=== PATIENT | female | born 2005 | race Caucasian/White ===

== ENCOUNTER 2024-07-10 18:15 | Emergency (ER) | payer BC, SELFPAY ==
[2024-07-10 18:20] VITALS: BP 142/78; PULSE 99; RESP 18; TEMP 36.7; O2SAT 100
--- NOTE | 2024-07-11 01:22 | ED.PREGNANCY ---
HPI - General Chief complaint: Vaginal Bleeding Stated complaint: PREG VAG BLEEDING Time Seen by Provider: 07/11/24 00:19 Source: patient Mode of arrival: ambulatory Limitations: no limitations History of Present Illness HPI Narrative: This is a 18 year old female that presents to the ER for vaginal bleeding. Reports she had a positive home test a couple of days ago. She started to have brown vaginal discharge. She is now experiencing mild vaginal bleeding. She also had some pelvic cramping earlier which prompted her to be seen. 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 This would be her first . Review of Systems Review of Systems: CONSTITUTIONAL: Denies fever GASTROINTESTINAL: Denies abdominal pain, nausea, vomiting All systems reviewed & are unremarkable except as noted in HPI and below PMFSH Past Medical History Medical History (Updated 07/11/24 @ 02:33 by Sonia Clark PA-C) No active medical problems Social History Social History (Updated 07/11/24 @ 01:24 by Sonia Clark PA-C) Smoking status: Never smoker Exam Narrative: GENERAL: Well-appearing, well-nourished, and in no acute distress. HEAD: Normocephalic, atraumatic. EYES: EOMI. CHEST: Clear to auscultation. No respiratory distress. No wheezes rales or rhonchi HEART: Regular rate and rhythm. No murmur heard. Normal peripheral pulses. ABDOMEN: Soft, nontender, nondistended, normal active bowel sounds. EXTREMITIES: Normal range of motion. No edema. SKIN: Warm, dry, no rash. NEURO: No focal deficits. Alert and oriented x3. PSYCH: Normal mood and affect Course Course Emergency Course: patient and family updated on workup and agree with plan of care Vital Signs Vital signs: Vital Signs Temperature 98.0 F 07/10/24 18:20 Pulse Rate 99 07/10/24 18:20 Respiratory Rate 18 07/10/24 18:20 Blood Pressure 142/78 H 07/10/24 18:20 Pulse Oximetry 100 07/10/24 18:20 Oxygen Delivery Room Air 07/10/24 18:20 Temperature 98.2 F 07/11/24 01:32 Pulse Rate 65 07/11/24 01:32 Respiratory Rate 15 07/11/24 01:32 Blood Pressure 120/84 07/11/24 01:32 Pulse Oximetry 98 07/11/24 01:32 Oxygen Delivery Room Air 07/10/24 18:20 MDM - OB/Uterine Contractions MDM Narrative Medical decision making narrative: patient presents to the emergency department for vaginal bleeding. Reporting having a positive home test a couple of days prior. Her vitals are stable. Hemoglobin is normal. Reports a mild amount of bleeding. Patient is O positive. Quantitative beta-hCG 27.59. Patient updated on her workup. Will be given follow-up with OB an order for repeat quantitative beta hCG. She was given warnings to return to the ER Differential Diagnosis Differential diagnosis: Likely other (miscarriage, threatened miscarriage) Lab Data Attestation: I reviewed the patient's lab results. 07/11/24 01:30 07/11/24 01:30 Labs: Lab Results 07/11/24 Range/Units 01:30 WBC 6.1 (4.5-10.0) K/mm3 RBC 4.63 (4.2-5.4) M/mm3 Hgb 13.7 (12.0-15.0) g/dL Hct 41.0 (37.0-47.0) % MCV 88.6 (80-100) fl MCH 29.6 (26-34) pg MCHC 33.4 (32-36) g/dl RDW 12.5 (11.5-14.5) % Plt Count 245 (150-375) k/mm3 MPV 10.1 (7.4-10.4) fl Immature Gran % (Auto) 0.2 (0-0.5) % Neut % (Auto) 49.7 (45.5-73.1) % Lymph % (Auto) 39.9 (18.3-44.2) % [place] % (Auto) 8.5 (2.6-8.5) % Eos % (Auto) 1.0 (0-4.4) % Baso % (Auto) 0.7 (0.2-1.2) % Lymph # (Auto) 2.44 (0.9-3.2) K/mm3 [place] # (Auto) 0.5 (0.1-0.6) K/mm3 Eos # (Auto) 0.1 (0-0.3) K/mm3 Baso # (Auto) 0.0 (0.0-0.1) K/mm3 Abs Immat Gran (auto) 0.01 (0.00-0.031) K/mm3 Absolute Neuts (auto) 3.0 (1.3-6.7) K/mm3 Absolute Nucleated RBC 0.000 (0.0-0.012) K/mm3 Nucleated RBC % 0.0 (0.0-0.2) % PT 13.7 (11.1-14.7) Seconds INR 1.0 APTT 28.3 (22.3-36.8) Seconds Sodium 138 (134-143) mmol/L [place]
[2024-07-11 01:32] VITALS: BP 120/84; PULSE 65; RESP 15; TEMP 36.8; O2SAT 98
[2024-07-11 01:36] LABS: Basophils Percent Auto 0.7 % (0.2-1.2); Eosinophils Absolute Auto 0.1 K/mm3 (0-0.3); Hemoglobin 13.7 g/dL (12.0-15.0); Immature Granulocyte Absolute 0.01 K/mm3 (0.00-0.031); Immature Granulocyte Percent A 0.2 % (0-0.5); Lymphocytes Absolute Auto 2.44 K/mm3 (0.9-3.2); Lymphocytes Percent Auto 39.9 % (18.3-44.2); Mean Corpuscular HGB Conc 33.4 g/dl (32-36); Mean Corpuscular Hemoglobin 29.6 pg (26-34); Mean Corpuscular Volume 88.6 fl (80-100); Mean Platelet Volume 10.1 fl (7.4-10.4); Monocytes Absolute Auto 0.5 K/mm3 (0.1-0.6); Monocytes Percent Auto 8.5 % (2.6-8.5); Neutrophils Percent Auto 49.7 % (45.5-73.1); Platelet Count Result 245 k/mm3 (150-375); Red Blood Count 4.63 M/mm3 (4.2-5.4); Red Cell Distribution Width 12.5 % (11.5-14.5); White Blood Count 6.1 K/mm3 (4.5-10.0)
[2024-07-11 01:46] LABS: Alanine Aminotransferase 9 U/L (6-35); Albumin Level 4.8 g/dL (3.7-5.6); Alkaline Phosphatase 73 U/L (45-116); Anion Gap 12 mmol/L (4-12); Aspartate Amino Transferase 23 U/L (14-36); Bilirubin,Total 0.6 mg/dL (0.2-1.3); Blood Urea Nitrogen 15 mg/dL (8-21); Calcium 9.2 mg/dL (8.9-10.7); Carbon Dioxide 23 mmol/L (22-30); Chloride 103 mmol/L (98-107); Estimated CRCL calculation 100 ml/min; Estimated Glomerular Filt Rate > 60; Glucose 83 mg/dL (65-110); Potassium 3.6 mmol/L (3.4-5.0); Sodium 138 mmol/L (134-143)
[2024-07-11 01:47] LABS: Prothrombin Time 13.7 Seconds (11.1-14.7)
[2024-07-11 01:48] LABS: Partial Thromboplastin Time 28.3 Seconds (22.3-36.8)
[2024-07-11 02:03] LABS: Beta HCG Quantitative 27.59 mIU/ML
== END 2024-07-11 02:46 | disposition home or self-care (01) ==
PROVIDERS: Emergency Provider Physician Assistant
DX: O20.9 Hemorrhage in early pregnancy, unspecified (principal); Z3A.00 Weeks of gestation of pregnancy not specified
CPT/HCPCS: 36415; 80053; 81025; 84702; 85025; 85461; 85610; 85730; 86850; 86900; 86901; 99284

== ENCOUNTER 2024-07-12 12:01 | Outpatient (CLI) | payer BC, SELFPAY ==
[2024-07-12 13:04] LABS: Beta HCG Quantitative 17.28 mIU/ML
== END 2024-07-12 12:02 | disposition home or self-care (01) ==
PROVIDERS: Visit Provider Physician Assistant
DX: Z32.01 Encounter for pregnancy test, result positive (principal)
CPT/HCPCS: 36415; 84702

== ENCOUNTER 2025-02-15 17:15 | Emergency (ER) | payer BC, SELFPAY ==
--- NOTE | 2025-02-15 17:23 | ED_ITS ---
HPI - Extremity Injury (Lower) General Stated Complaint: Left Foot Pain Time Seen by Provider: 02/15/25 17:20 Source: patient Mode of arrival: ambulatory Limitations: no limitations History of Present Illness HPI Narrative: Prema is a 19-year-old female patient presenting to the clinic today with complaints of dorsal foot pain x1 month. No known injury. Reports pain is to the top medial aspect of the foot. Has not taken anything for pain. Has tried applying an ankle splint Related Data Allergies Allergy/AdvReac Type Severity Reaction Status Date / Time No Known Allergies Allergy Verified 02/15/25 17:33 Review of Systems Review of Systems: Pertinent positives per HPI. Patient denies any fever, chills, rash, headache, visual changes, dizziness, cough, shortness of breath, chest pain, palpitations, nausea, vomiting, diarrhea, constipation, abdominal pain, or any urinary issues. [facility] Past Medical History Medical History (Updated 02/15/25 @ 17:30 by Efren Long APRN) No active medical problems Social History Social History Smoking status: Never smoker Comments At the time of my signature, I reviewed and agree with the nursing past medical, surgical, social, and family history. There is no relevant family history pertinent to the patient complaint. Exam Narrative: General: Well-developed, well nourished, in no apparent distress Head: Normocephalic, atraumatic. Cardio: Regular rate and rhythm, s1 and s2 normal, no murmur appreciated. Resp: Clear to auscultation bilaterally, no rhonchi, rales, wheezing or rubs. Musculoskeletal: No deformity, tender to palpation over the dorsal medial aspect of the left foot, mild pain with valgus and varus testing but no pain with plantar or dorsal flexion against resistance, grossly normal range of motion, muscle strength strong and equal, peripheral pulse strong, no edema, no cyanosis, normal gait and station Course Course Emergency Course: Portions of this record may have been created with voice recognition software. Level of Care: Express Care Visit Vital Signs Vital signs: Vital signs reviewed MDM - Extremity Injury (Lower) MDM Narrative Medical decision making narrative: At the time of visit patient is resting comfortably on the exam table. Patient appears to be nontoxic. Plan: I suspect patient has a left foot strain. Prescription for naproxen was sent to the pharmacy. I do not feel as though x-rays needed at this time as there was no injury. Supportive measures were discussed with the patient and they voiced understanding discharge instructions and agrees to treatment plan. Return precautions reviewed Differential Diagnosis Differential diagnosis: Likely ankle sprain and strain, ankle fracture and other (Foot sprain, foot fracture, tinnitus) Discharge Plan Discharge Clinical Impression: Strain of foot Qualifiers: Encounter type: initial encounter Laterality: left Qualified Code(s): S96.912A - Strain of unspecified muscle and tendon at ankle and foot level, left foot, initial encounter Patient Disposition: Home Condition: Stable Instructions: Antibiotic Form, Foot Sprain (ED) Additional Instructions: Rest, ice, elevate, and wear royer wrap as directed Take naproxen as prescribed May take Tylenol additionally as needed for pain Gradually bear weight No running or sports until healed. Follow up with your PCP if symptoms persist more than 1 week. Patient Language: Italian Prescriptions: New naproxen 500 mg tablet 500 mg PO BID PRN (Reason: pain) 7 Days Qty: 14 0RF Follow-up/Referrals: PHYSICIAN,COMMUNICATION AND OUTREACH MANAGER [Primary Care Provider] - Time of Disposition: 17:32 Quality NIHSS Nursing Documentation ED NIHSS nursing documentation: reviewed/agree
[2025-02-15 17:33] VITALS: BP 103/71; PULSE 81; RESP 20; TEMP 37.1; O2SAT 100
== END 2025-02-15 17:44 | disposition home or self-care (01) ==
PROVIDERS: Emergency Provider Nurse Practitioner Family
DX: S96.912A Strain of unspecified muscle and tendon at ankle and foot level, left foot, initial encounter (principal); X58.XXXA Exposure to other specified factors, initial encounter
CPT/HCPCS: 99213; G0463